=== PATIENT | female | born 1990 | race Caucasian/White ===

== ENCOUNTER 2016-10-04 23:13 | Emergency (ER) | payer OTHER ==
[~2016-10-04] VITALS: Ht 154.9 cm; Wt 55.3 kg
[~2016-10-04 23:13] MED LIST: AMOXICILLIN500 MG PO; AMOXIL500 MG PO; BACTRIM DS 8001 TA1 PO; CIPROFLOXACIN500 MG PO; CLINDAMYCIN HC300 MG PO; Ciprofloxacin500 MG PO; DIFLUCAN150 MG PO; FLAGYL500 MG PO; FLEXERIL5 MG PO; IBUPROFEN 600 MG PO; LEXAPRO10 MG PO; LIDEX0.05% T; LOMOTIL 0.025 M1 TA1 PO; MACROBID100 M1 PO; MELATONIN5 M1 SL; MOTRIN800 MG PO; PHENERGAN25 M1 PO; PREDNICOT20 MG PO; PYRIDIUM200 M1 PO; PYRIDIUM200 MG PO; VICODIN 5/500 505 MG PO; VOLTAREN50 M1 PO; ZOFRAN ODT4 MG SL; ZOFRAN4 MG PO; Zofran4 MG PO
[2016-10-04] MEDS ORDERED: B12,B-12,B 12500 MC1 PO (23:43)
[2016-10-04] MEDS ORDERED: PROZAC20 MG PO (23:43)
[2016-10-05 00:07] LABS: BILIRUBIN NEGATIVE (NEGATIVE); BLOOD NEGATIVE (NEGATIVE); CLARITY CLEAR (CLEAR); COLOR YELLOW (YELLOW); GLUCOSE NEGATIVE (NEGATIVE); KETONE NEGATIVE (NEGATIVE); LEUKO ESTERASE NEGATIVE (NEGATIVE); NITRITE NEGATIVE (NEGATIVE); PH 6.5 (5.0-9.0); PROTEIN NEGATIVE (NEGATIVE); UROBILINOGEN 0.2 E.U./dl (0.2-1.0)
[2016-10-05 00:27] LABS: EPITHELIAL CELLS 20-25; URINE REFLEX COMMENT NO (NO); WBC 0-2 wbc/hpf (0-5)
[2016-10-23] MEDS ORDERED: Zofran4 MG PO (11:23)
[2016-10-23] MEDS ORDERED: Motrin,Rufen800 MG PO (11:23)
[2016-10-23] MEDS ORDERED: TAMIFLU 75MG CA75 MG PO (11:23)
== END 2016-10-05 01:20 | disposition home or self-care (01) ==
LOC: ED 23:13
PROVIDERS: Emergency Medicine
DX: R82.99 Other abnormal findings in urine (principal); R30.0 Dysuria; Z90.49 Acquired absence of other specified parts of digestive tract; Z88.8 Allergy status to other drugs, medicaments and biological substances

== ENCOUNTER 2017-04-17 10:41 | Emergency (ER) | payer OTHER ==
[~2017-04-17] VITALS: Ht 154.9 cm; Wt 54.4 kg
[~2017-04-17 10:41] MED LIST changes: +B12,B-12,B 12500 MC1 PO; +Motrin,Rufen800 MG PO; +PROZAC20 MG PO; +TAMIFLU 75MG CA75 MG PO
[2017-04-17 11:06] LABS: BASO % 0.4 % (0.0-1.0); EOS # 0.1 10*3/uL (0.0-0.4); EOS % 1.9 % (1.0-4.0); HEMATOCRIT 38.5 % (37.0-47.0); HEMOGLOBIN 13.2 g/dl (12.0-16.0); LYMPH % 21.3 % (27.0-41.0); MEAN CELL VOLUME 87.7 fl (81.0-99.0); MEAN CORPUSCULAR HGB 30.1 pg (27.0-31.0); MEAN CORPUSCULAR HGB CONC 34.3 g/dl (33.0-37.0); MEAN PLATELET VOLUME 8.6 fl (9.6-12.3); MONO # 0.3 10*3/uL (0.1-1.0); MONO % 6.7 % (3.0-9.0); NEUT # 3.3 10*3/uL (2.3-7.9); NEUT % 69.5 % (47.0-73.0); PLATELET COUNT AUTOMATED 221 10*3/uL (130-400); RED BLOOD COUNT 4.39 10*6/uL (4.10-5.10); RED CELL DISTRI WIDTH 12.4 % (0-14.5); WHITE BLOOD COUNT 4.8 10*3/uL (4.8-10.8)
[2017-04-17 11:15] LABS: BILIRUBIN NEGATIVE (NEGATIVE); BLOOD NEGATIVE (NEGATIVE); CLARITY CLEAR (CLEAR); COLOR YELLOW (YELLOW); GLUCOSE NEGATIVE (NEGATIVE); KETONE NEGATIVE (NEGATIVE); LEUKO ESTERASE NEGATIVE (NEGATIVE); NITRITE NEGATIVE (NEGATIVE); PROTEIN NEGATIVE (NEGATIVE); UROBILINOGEN 0.2 E.U./dl (0.2-1.0)
[2017-04-17 11:20] LABS: ALBUMIN 4.1 gm/dl (3.1-4.5); BILIRUBIN, TOTAL 0.8 mg/dl (0.2-1.0); BUN 13 mg/dl (7-24); CARBON DIOXIDE 28 mmol/L (21-32); CHLORIDE 103 mmol/L (98-107); EST GLOM FILT AFRICAN AMERICAN > 60 ml/min; GLUCOSE 89 mg/dL (65-99); POTASSIUM 4.1 mmol/L (3.5-5.1); SGOT/AST 14 IU/L (3-35); SGPT/ALT 16 U/L (12-78); SODIUM 137 mmol/L (136-145); TOTAL PROTEIN 7.4 gm/dL (6.4-8.2)
[2017-04-17 11:24] LABS: ALKALINE PHOSPHATASE 54 U/L (45-117)
[2017-04-17 11:29] LABS: RBC 0-2 rbc/hpf (0-2); URINE REFLEX COMMENT NO (NO)
[2017-04-17] MEDS ORDERED: CYCLOBENZAPRINE5 M3 PO (13:31)
== END 2017-04-17 13:48 | disposition home or self-care (01) ==
LOC: ED 10:41
PROVIDERS: Nurse Practitioner Family
DX: S39.012A Strain of muscle, fascia and tendon of lower back, initial encounter (principal); Z88.8 Allergy status to other drugs, medicaments and biological substances; Z79.899 Other long term (current) drug therapy; X58.XXXA Exposure to other specified factors, initial encounter; Y93.9 Activity, unspecified; Y92.9 Unspecified place or not applicable; Y99.9 Unspecified external cause status

== ENCOUNTER → 2017-06-03 | Outpatient (CLI) | payer OTHER ==
[~2017-06-03] MED LIST changes: +CYCLOBENZAPRINE5 M3 PO
== END | disposition home or self-care (01) ==
LOC: US 05-26 14:00
DX: N83.292 Other ovarian cyst, left side (principal)

== ENCOUNTER 2018-03-04 16:47 | Emergency (ER) | payer OTHER ==
[~2018-03-04] VITALS: Ht 154.9 cm; Wt 56.7 kg
[2018-03-04] MEDS ORDERED: Motrin,Rufen800 MG PO (18:47)
== END 2018-03-04 18:51 | disposition home or self-care (01) ==
LOC: ED 16:47
DX: H10.9 Unspecified conjunctivitis (principal); Z90.49 Acquired absence of other specified parts of digestive tract; Z79.899 Other long term (current) drug therapy; Z88.8 Allergy status to other drugs, medicaments and biological substances

== ENCOUNTER → 2018-04-02 | Outpatient (CLI) | payer OTHER ==
[2018-04-02 16:06] LABS: PTH INTACT 32.8 pg/mL (18.5-88.0); VITAMIN D, 25-HYDROXY 22.8 ng/mL (30-100)
== END | disposition home or self-care (01) ==
LOC: LAB 14:48
PROVIDERS: Nurse Practitioner Family
DX: E83.51 Hypocalcemia (principal)

== ENCOUNTER 2018-09-12 13:28 | Emergency (ER) | payer OTHER ==
[~2018-09-12] VITALS: Ht 154.9 cm; Wt 59.0 kg
[2018-09-12] MEDS ORDERED: ZOFRAN4 MG PO (13:38)
[2018-09-12] MEDS ORDERED: NAPROSYN500 MG PO (13:38)
[2018-11-09] MEDS ORDERED: CYMBALTA30 MG PO (10:16)
[2018-11-16] MEDS ORDERED: NORCO 5-325 TA1 EACH PO (09:30)
[2018-11-16] MEDS ORDERED: Motrin,Rufen800 MG PO (09:30)
== END 2018-09-12 15:12 | disposition home or self-care (01) ==
LOC: ED 13:28
DX: S46.911A Strain of unspecified muscle, fascia and tendon at shoulder and upper arm level, right arm, initial encounter (principal); M25.521 Pain in right elbow; R03.0 Elevated blood-pressure reading, without diagnosis of hypertension; Z88.8 Allergy status to other drugs, medicaments and biological substances; Z79.899 Other long term (current) drug therapy; X50.9XXA Other and unspecified overexertion or strenuous movements or postures, initial encounter; Y93.89 Activity, other specified; Y92.89 Other specified places as the place of occurrence of the external cause; Y99.8 Other external cause status

== ENCOUNTER → 2018-10-05 | Outpatient (CLI) | payer OTHER ==
[~2018-10-05] MED LIST changes: +CYMBALTA30 MG PO; +NAPROSYN500 MG PO; +NORCO 5-325 TA1 EACH PO
== END | disposition home or self-care (01) ==
LOC: US 14:46
DX: N93.9 Abnormal uterine and vaginal bleeding, unspecified (principal); R10.2 Pelvic and perineal pain

== ENCOUNTER → 2018-11-16 | Day surgery (SDC) | payer OTHER ==
[2018-11-09 10:14] VITALS: BP 1149/68
[~2018-11-16] VITALS: Ht 154.9 cm; Wt 59.0 kg
[2018-11-16] VITALS (10 sets, daily range): BP systolic 100–124; BP diastolic 51–78
[~2018-11-16] MED LIST changes: +HYDROCODONE-AC1 EAC1 PO; +IBU800 M1 PO; +NORCO 10-325 T1 EACH PO
== END | disposition home or self-care (01) ==
LOC: SDC 11-02 10:15
DX: N70.11 Chronic salpingitis (principal); N80.0 Endometriosis of uterus; K21.9 Gastro-esophageal reflux disease without esophagitis; F41.9 Anxiety disorder, unspecified; J45.909 Unspecified asthma, uncomplicated; R10.2 Pelvic and perineal pain; G89.29 Other chronic pain; Z88.8 Allergy status to other drugs, medicaments and biological substances; Z79.899 Other long term (current) drug therapy; Z98.890 Other specified postprocedural states; Z90.49 Acquired absence of other specified parts of digestive tract

== ENCOUNTER 2018-11-18 10:17 | Emergency (ER) | payer OTHER ==
[~2018-11-18] VITALS: Wt 63.5 kg
[~2018-11-18 10:17] MED LIST changes: -HYDROCODONE-AC1 EAC1 PO; -IBU800 M1 PO; -NORCO 10-325 T1 EACH PO
[2018-11-18 11:11] LABS: BASO % 0.4 % (0.0-1.0); EOS # 0.2 10*3/uL (0.0-0.4); EOS % 2.1 % (1.0-4.0); HEMATOCRIT 33.5 % (37.0-47.0); LYMPH # 1.3 10*3/uL (1.3-4.4); LYMPH % 18.3 % (27.0-41.0); MEAN CELL VOLUME 90.1 fl (81.0-99.0); MEAN CORPUSCULAR HGB 29.6 pg (27.0-31.0); MEAN CORPUSCULAR HGB CONC 32.8 g/dl (33.0-37.0); MEAN PLATELET VOLUME 9.3 fl (9.6-12.3); MONO # 0.4 10*3/uL (0.1-1.0); MONO % 5.7 % (3.0-9.0); NEUT # 5.3 10*3/uL (2.3-7.9); NEUT % 73.4 % (47.0-73.0); PLATELET COUNT AUTOMATED 202 10*3/uL (130-400); RED BLOOD COUNT 3.72 10*6/uL (4.10-5.10); RED CELL DISTRI WIDTH 12.4 % (0-14.5); WHITE BLOOD COUNT 7.2 10*3/uL (4.8-10.8)
[2018-11-18 11:37] LABS: ALBUMIN 3.5 gm/dl (3.1-4.5); ALKALINE PHOSPHATASE 50 U/L (45-117); BUN 13 mg/dl (7-24); CHLORIDE 108 mmol/L (98-107); CREATININE 0.54 mg/dL (0.55-1.02); POTASSIUM 3.5 mmol/L (3.5-5.1); SGOT/AST 12 IU/L (3-35); SGPT/ALT 22 U/L (12-78); SODIUM 141 mmol/L (136-145); TOTAL PROTEIN 6.6 gm/dL (6.4-8.2)
[2018-11-18 13:48] LABS: BILIRUBIN NEGATIVE (NEGATIVE); BLOOD 3+ (NEGATIVE); CLARITY SL CLOUDY (CLEAR); COLOR YELLOW (YELLOW); GLUCOSE NEGATIVE (NEGATIVE); KETONE NEGATIVE (NEGATIVE); LEUKO ESTERASE TRACE (NEGATIVE); NITRITE NEGATIVE (NEGATIVE); PH 6.5 (5.0-9.0); SPECIFIC GRAVITY <= 1.005 (1.005-1.030); UROBILINOGEN 0.2 E.U./dl (0.2-1.0)
[2018-11-18 14:13] LABS: BACTERIA 1+
[2019-01-23] MEDS ORDERED: NORCO 10-325 T1 EACH PO (09:38)
== END 2018-11-18 14:58 | disposition home or self-care (01) ==
LOC: ED 10:17
PROVIDERS: Physician Assistant
DX: N93.9 Abnormal uterine and vaginal bleeding, unspecified (principal); K59.00 Constipation, unspecified; Z88.8 Allergy status to other drugs, medicaments and biological substances; Z79.899 Other long term (current) drug therapy

== ENCOUNTER 2019-01-26 01:34 | Inpatient (IN) | payer OTHER ==
[2019-01-24 19:52] LABS: HEMATOCRIT 36.9 % (37.0-47.0); HEMOGLOBIN 12.5 g/dl (12.0-16.0)
[~2019-01-26] VITALS: Ht 154.9 cm; Wt 66.4 kg
[2019-01-26] VITALS (10 sets, daily range): BP systolic 118–143; BP diastolic 77–87
[~2019-01-26 01:34] MED LIST changes: +NORCO 10-325 T1 EACH PO
--- NOTE | 2019-01-26 12:23 | NUR ---
TORADOL GIVEN FOR C/O ABDM. PAIN. WILL MONITOR.
--- NOTE | 2019-01-26 13:30 | NUR ---
TORDAL APPEARS EFFECTIVE. PT RESTING IN BED WITH EYES CLOSED.
--- NOTE | 2019-01-26 13:48 | NUR ---
ATIENT INSTRUCTED ON USE OF FLUTTER VALVE.
--- NOTE | 2019-01-26 15:59 | NUR ---
ZOFRAN GIVEN FOR C/O NAUSEA. WILL MONITOR.
--- NOTE | 2019-01-26 16:06 | NUR ---
NORCO GIVEN FOR C/O ABDM/BACK PAIN. RATES 10/10 ON [PAIN SCALE. WILL MONITOR.
--- NOTE | 2019-01-26 19:00 | NUR ---
PT COMPLAIN OF PAIN ABDOMINAL/INCISIONAL PAIN, TORADOL GIVEN. KPAD TO BACK
--- NOTE | 2019-01-26 20:19 | NUR ---
PT RESTING WITH EYES CLOSED. STATES PAIN MEDICTION DID HELP SOME, HEATING PAD IS EFFECTIVE FOR BACK PAIN. NARAYANAN INTACT,DRIANING YELLOW. IV FLUIDS INFUSING LEFT HAND.
--- NOTE | 2019-01-26 22:45 | NUR ---
RESTING COMFORTABLY PT STATES PAIN MEDICATION EFFECTIVE AT THIS TIME
--- NOTE | 2019-01-26 23:35 | NUR ---
ASSUMED CARE OF PATIENT AT THIS TIME. PATIENT RESTING COMFORTABLY IN HER BED AT THIS TIME. NO S/S OF DISTRESS. EXPRESSES NO DISCOMFORTS OR COMPLAINTS DURING ASSESSMENT. STATES SHE IS NOT EXPERIENCING ANY PAIN AT THIS TIME DUE TO PRN MEDICATIONS GIVEN BY PREVIOUS NURSE BEFORE CHANGE OF SHIFT. CALL LIGHT WITHIN REACH.
[2019-01-27] VITALS: BP 120/79
--- NOTE | 2019-01-27 05:12 | NUR ---
PATIENT RECEIVED NORCO FOR PAIN RATED 7/10 OF THE ABDOMINAL AREA.
--- NOTE | 2019-01-27 05:49 | NUR ---
PATIENT AWAKE AND ALERT, RESTING IN HER BED. NO S/S OF DISTRESS. RECEIVED THE NORCO FOR PAIN. CALL LIGHT WITHIN REACH. ENCOURAGED TO AMBULATE EARLY TODAY. NARAYANAN CATHETER BEING REMOVED MOMENTARILY.
--- NOTE | 2019-01-27 05:57 | NUR ---
NARAYANAN CATHETER REMOVED. BALLOON DEFLATED, AND CATHETER EASED FROM URETHRA. PATIENT TOLERATED PROCEDURE WELL. EXPERIENCED NO DISCOMFORT. DENIES ANY PAIN AT THIS TIME. NO BLOOD AT URETHRA OPENING NOTED. NO BLOOD IN URINE NOTED. URINE A PALE YELLOW STRAW COLOR. CLEAR. NO SEDIMENT NOTED. PATIENT INSTRUCTED TO ATTEMPT TO VOID WITHIN A COUPLE HOURS AFTER CATHETER REMOVAL. IV PUMP MOVED TO AN IV POLE TO FACILITATE INDEPENDENT AMBULATING TO BATHROOM NEEDED. CALL LIGHT WITHIN REACH. NO S/S OF DISTRESS.
[2019-01-27 06:41] LABS: EOS % 0.2 % (1.0-4.0); HEMATOCRIT 32.2 % (37.0-47.0); LYMPH # 1.2 10*3/uL (1.3-4.4); LYMPH % 12.6 % (27.0-41.0); MEAN CELL VOLUME 91.2 fl (81.0-99.0); MEAN CORPUSCULAR HGB 31.2 pg (27.0-31.0); MEAN CORPUSCULAR HGB CONC 34.2 g/dl (33.0-37.0); MEAN PLATELET VOLUME 9.4 fl (9.6-12.3); MONO # 0.7 10*3/uL (0.1-1.0); MONO % 7.3 % (3.0-9.0); NEUT # 7.4 10*3/uL (2.3-7.9); NEUT % 79.6 % (47.0-73.0); PLATELET COUNT AUTOMATED 234 10*3/uL (130-400); RED BLOOD COUNT 3.53 10*6/uL (4.10-5.10); RED CELL DISTRI WIDTH 13.1 % (0-14.5); WHITE BLOOD COUNT 9.2 10*3/uL (4.8-10.8)
[2019-01-27 08:00] VITALS: BP 107/69
--- NOTE | 2019-01-27 09:00 | NUR ---
Online Communications Manager in to talk to patient. Patient states lives at home with her . There are 0 steps in the home. Physician: Zulema Larson [facility]: [facility] Home health services: none Patient's level of ADLs: INDEPENDENT Patient has working utilities: yes DME: none Follow-up physician's appointment after d/c: she prefers to make her own follow up appt after discharge Does patient want to access PORTAL?: no Discharge plan discussed with patient and her who is at the bedside. She lives at home with her . She is independent in her ADLs and ambulation. Discussed home health care services and she denies any home needs at this time. When medically stable she will be discharged to home. GUILLERMO [place]
--- NOTE | 2019-01-27 09:17 | NUR ---
PT UP AND AMBULATORY AND URINATED WITH MODERATE DISCOMFORT, PT REPORTS A SCANT ABOUT OF BLOOD ON TISSUE.
[2019-01-27] MEDS ORDERED: IBU800 M1 PO (12:32)
[2019-01-27] MEDS ORDERED: HYDROCODONE-AC1 EAC1 PO (12:32)
[2019-01-27 16:00] VITALS: BP 111/68
--- NOTE | 2019-01-27 17:37 | NUR ---
NOTIFIED THAT PATIENT IS NOT "UP TO" GOING HOME TODAY, WOULD LIKE TO STAY ANOTHER NIGHT. PER THIS IS OK WE WILL CONTINUE TO MONITOR PATIENT AND CONTROL NAUSEA AND PAIN
--- NOTE | 2019-01-27 20:00 | NUR ---
24 HOUR CHART CHECK COMPLETE.
--- NOTE | 2019-01-27 20:20 | NUR ---
PRN TORADOL ADMINISTERED PRESCRIBED FOR 03/17 ABDOMINAL PAIN. WILL CONTINUE TO MONITOR THE PT AND REASSESS IN AN HOUR.
--- NOTE | 2019-01-27 21:10 | NUR ---
PT RESTING. NO SIGNS OF DISTRESS.
[2019-01-28] VITALS: BP 117/69
--- NOTE | 2019-01-28 06:05 | NUR ---
PRN TORADOL ADMINSTERED PRESCRIBED FOR 7/10 ABDOMINAL PAIN. WILL CONTINUE TO MONITOR THE PT AND REASSESS IN AN HOUR.
--- NOTE | 2019-01-28 06:59 | NUR ---
TORADOL SEEMS TO BE EFFEECTIVE. PT ASLEEP. NO SIGNS OF DISTRESS NOTED.
[2019-01-28 08:00] VITALS: BP 118/71
--- NOTE | 2019-01-28 10:06 | NUR ---
Discharge instructions reviewed with patient/family. Patient receptive and verbalizes understanding. Follow-up care arranged. Written instructions given to patient/family. SONIA HINES
--- NOTE | 2019-01-28 10:07 | NUR ---
PATIENT WANTED TO WALK OUT WITH FAMILY MEMBER. STATED SHE DIDNT NEED WC, SHE NEEDS TO WALK.
--- NOTE | 2019-01-28 10:43 | NUR ---
PATIENT LEFT AT THIS TIME VIA W/C.
== END 2019-01-28 10:43 | disposition home or self-care (01) | DRG 742 ==
LOC: SDC 01:34 → 4E 08:24 → SDC 11:00 → 4E 01-28 10:43
PROVIDERS: ADMIT Obstetrics & Gynecology
PROC: 0UT9FZZ Resection of Uterus, Via Natural or Artificial Opening With Percutaneous Endoscopic Assistance (ICD-10-PCS; principal; 2019-01-26)
PROC: 0UT7FZZ Resection of Bilateral Fallopian Tubes, Via Natural or Artificial Opening With Percutaneous Endoscopic Assistance (ICD-10-PCS; 2019-01-26)
DX: N80.0 Endometriosis of uterus (principal); D62 Acute posthemorrhagic anemia; N70.11 Chronic salpingitis; N93.9 Abnormal uterine and vaginal bleeding, unspecified; N94.10 Unspecified dyspareunia; N94.6 Dysmenorrhea, unspecified; G89.29 Other chronic pain; N83.8 Other noninflammatory disorders of ovary, fallopian tube and broad ligament

== ENCOUNTER → 2020-03-10 | Outpatient (CLI) | payer OTHER ==
[~2020-03-10] MED LIST changes: +HYDROCODONE-AC1 EAC1 PO; +IBU800 M1 PO
== END | disposition home or self-care (01) ==
LOC: US 09:49
DX: R10.13 Epigastric pain (principal); K90.49 Malabsorption due to intolerance, not elsewhere classified; R10.11 Right upper quadrant pain

== ENCOUNTER → 2020-03-27 | Outpatient (CLI) | payer OTHER | END | disposition home or self-care (01) | LOC: NM 07:52 | DX: K90.49 Malabsorption due to intolerance, not elsewhere classified (principal) ==

== ENCOUNTER → 2020-05-01 | Outpatient (CLI) | payer OTHER | END | disposition home or self-care (01) | LOC: US 13:57 | DX: R10.2 Pelvic and perineal pain (principal); Z90.710 Acquired absence of both cervix and uterus ==

== ENCOUNTER → 2020-07-17 | Outpatient (CLI) | payer OTHER ==
[~2020-07-17] MED LIST changes: +AUGMENTIN 875-875 MG PO
== END | disposition home or self-care (01) ==
LOC: RAD 09:31
PROVIDERS: ATTEND Nurse Practitioner Family
DX: K20.90 Esophagitis, unspecified without bleeding (principal); M54.5 Low back pain

== ENCOUNTER → 2020-07-31 | Outpatient (CLI) | payer OTHER | END | disposition home or self-care (01) | LOC: COVID19 14:36 | PROVIDERS: ATTEND Nurse Practitioner Family | DX: Z20.828 Contact with and (suspected) exposure to other viral communicable diseases (principal) ==

== ENCOUNTER 2020-09-03 08:31 | Emergency (ER) | payer OTHER ==
[~2020-09-03] VITALS: Ht 154.9 cm; Wt 61.2 kg
[~2020-09-03 08:31] MED LIST changes: -AUGMENTIN 875-875 MG PO
[2020-09-03] MEDS ORDERED: AUGMENTIN 875-875 MG PO (09:50)
== END 2020-09-03 10:01 | disposition home or self-care (01) ==
LOC: ED 08:31
DX: S61.052A Open bite of left thumb without damage to nail, initial encounter (principal); Z88.8 Allergy status to other drugs, medicaments and biological substances; Z79.899 Other long term (current) drug therapy; W54.0XXA Bitten by dog, initial encounter; Y93.89 Activity, other specified; Y92.89 Other specified places as the place of occurrence of the external cause; Y99.8 Other external cause status

== ENCOUNTER 2021-05-06 15:06 | Emergency (ER) | payer OTHER ==
[~2021-05-06] VITALS: Wt 61.2 kg
[~2021-05-06 15:06] MED LIST changes: +AUGMENTIN 875-875 MG PO
[2021-05-06 15:32] LABS: BASO % 0.4 % (0.0-1.0); EOS # 0.5 10*3/uL (0.0-0.4); EOS % 7.7 % (1.0-4.0); HEMATOCRIT 40.1 % (37.0-47.0); LYMPH # 1.7 10*3/uL (1.3-4.4); LYMPH % 25.3 % (27.0-41.0); MEAN CELL VOLUME 87.9 fl (81.0-99.0); MEAN CORPUSCULAR HGB 30.5 pg (27.0-31.0); MEAN CORPUSCULAR HGB CONC 34.7 g/dl (33.0-37.0); MONO # 0.4 10*3/uL (0.1-1.0); MONO % 6.4 % (3.0-9.0); NEUT # 4.2 10*3/uL (2.3-7.9); NEUT % 60.2 % (47.0-73.0); PLATELET COUNT AUTOMATED 291 10*3/uL (130-400); RED BLOOD COUNT 4.56 10*6/uL (4.10-5.10); RED CELL DISTRI WIDTH 12.1 % (0-14.5); WHITE BLOOD COUNT 6.9 10*3/uL (4.8-10.8)
[2021-05-06 16:06] LABS: ALKALINE PHOSPHATASE 68 U/L (45-117); BUN 9 mg/dl (7-24); CHLORIDE 108 mmol/L (98-107); CREATININE 0.69 mg/dL (0.55-1.02); LIPASE 78 U/L (73-393); POTASSIUM 3.7 mmol/L (3.5-5.1); SGOT/AST 13 IU/L (3-35); SGPT/ALT 22 U/L (12-78); SODIUM 140 mmol/L (136-145); TOTAL PROTEIN 7.5 gm/dL (6.4-8.2)
[2021-05-06 16:26] LABS: BILIRUBIN Negative (Negative); BLOOD Negative (Negative); CLARITY Clear (Clear); COLOR Yellow (Yellow); GLUCOSE Negative (Negative); KETONE Negative (Negative); LEUKO ESTERASE Negative (Negative); NITRITE Negative (Negative); UROBILINOGEN 0.2 E.U./dl (0.0-1.0)
[2021-05-06 16:34] LABS: URINE AMPHETAMINES < 1000 (1000ng/ml); URINE BARBITURATES < 200 (200ng/ml); URINE BENZODIAZEPINES < 200 (200ng/ml); URINE CANNABINOIDS (THC) < 50 (50ng/ml); URINE COCAINE < 300 (300ng/ml); URINE METHADONE < 300 (300ng/ml); URINE OPIATES < 300 (300ng/ml)
[2021-05-06 16:35] LABS: URINE PHENCYCLIDINE < 25 (25ng/ml)
[2021-05-06 16:41] LABS: EPITHELIAL CELLS 16-20; RBC 0-2 rbc/hpf (0-2); WBC 0-2 wbc/hpf (0-5)
[2021-05-06 16:42] LABS: BACTERIA 2+
[2021-05-06] MEDS ORDERED: DICYCLOMINE HCL20 MG PO (16:45)
[2021-05-06] MEDS ORDERED: PRILOSEC20 M1 PO (16:45)
== END 2021-05-06 17:15 | disposition home or self-care (01) ==
LOC: ED 15:06
PROVIDERS: Emergency Medicine
DX: Z90.711 Acquired absence of uterus with remaining cervical stump (principal); Z90.49 Acquired absence of other specified parts of digestive tract; Z88.8 Allergy status to other drugs, medicaments and biological substances; Z79.2 Long term (current) use of antibiotics; Z79.899 Other long term (current) drug therapy

== ENCOUNTER 2021-05-07 21:48 | Emergency (ER) | payer OTHER ==
[~2021-05-07 21:48] MED LIST changes: +DICYCLOMINE HCL20 MG PO; +PRILOSEC20 M1 PO
== END 2021-05-07 22:35 | disposition left against medical advice (07) ==
LOC: ED 21:48
DX: R10.9 Unspecified abdominal pain (principal); Z53.21 Procedure and treatment not carried out due to patient leaving prior to being seen by health care provider

== ENCOUNTER → 2023-03-03 | Outpatient (CLI) | payer OTHER | END | disposition home or self-care (01) | LOC: LAB 13:02 | PROVIDERS: ATTEND Nurse Practitioner Women's Health | DX: J02.9 Acute pharyngitis, unspecified (principal); N95.1 Menopausal and female climacteric states ==

== ENCOUNTER → 2023-03-10 | Outpatient (CLI) | payer OTHER | END | disposition home or self-care (01) | LOC: US 00:57 | PROVIDERS: ATTEND Nurse Practitioner Women's Health | DX: R10.2 Pelvic and perineal pain (principal); Z90.49 Acquired absence of other specified parts of digestive tract ==